=== PATIENT | male | born 1990 | race Caucasian/White ===

== ENCOUNTER 2019-05-13 21:59 | Emergency (ER) | payer OTHER, MEDICAID, SELFPAY ==
[2019-05-13 22:01] VITALS: BP 152/72; PULSE 78; RESP 16; TEMP 36.3; O2SAT 96; BMI 34.4
--- NOTE | 2019-05-13 22:40 | RAD_ITS ---
HISTORY: CHICKEN BONE STUCK IN THROAT EXAMINATION/TECHNIQUE: XR Neck Soft Tissue: 2 views COMPARISON: None FINDINGS: SOFT TISSUES: Unremarkable. No radiopaque foreign body. EPIGLOTTIS: No pathologic thickening or enlargement. PROXIMAL AIRWAY: Grossly patent. RAD/Neck for Soft Tissue IMPRESSION: Negative. at 2311 Reported and signed by: Bryn Flowers MD Electronically Signed: Bryn Flowers MD at 23:10 EDT Tel , Service support ,
--- NOTE | 2019-05-13 22:59 | ED.VISSUMM ---
- ER Visit Summary Date of Service: 05/13/19 Chief Complaint: Foreign body sensation History of Present Illness: The patient is a 28 M who presents with a foreign body sensation in his throat that began today. Patient states he was eating a chicken sandwich for lunch today. Patient states it felt like there was a small bone that he swallowed. Patient states it feels like there is still something in his throat when he swallows. Patient states the pain is sharp. Patient denies any difficulty breathing. Patient states he is able to swallow liquids without difficulty. Physical Examination: Vital signs are stable. Patient is afebrile. Patient is in no acute distress. Oral mucosa is pink and moist. Oropharynx is clear. There is no erythema. I do not see any foreign bodies in the visualized oropharynx. Neck is supple. Trachea is midline. There is no JVD noted. There is no subcutaneous emphysema. Heart was regular rate and rhythm. Lungs are clear and equal bilaterally. Test Results: Soft tissue neck x-ray was obtained. I do not see any foreign bodies on my interpretation. The radiologist interpretation was negative as well. Emergency Department Course and Treatment: Patient was given a GI cocktail here. Patient states that did alleviate his symptoms. Patient was advised that since there is no bone visualized on radiographs and his pain improved with topical lidocaine this is most likely an abrasion in his pharynx from the bone. I do not see a need for emergent endoscopy at this time. Patient has no airway compromise. Patient is swallowing liquids without difficulty. Patient was instructed to follow-up with his primary care physician in 5-7 days. Patient understood and was agreeable with the plan. All questions were answered. Disposition: Discharge home Impression: Pharyngeal abrasion This note was generated with [employer] dictation software. It may contain incorrect words, spelling, and punctuation that were not noted in review of the chart prior to signing ED Disposition - Plan for ED Patient: Disposition: Home or Assisted Living Diagnosis: Abrasion of pharynx Instructions: Pharyngeal Abrasion Referrals: NOT,DEFINED [NON-STAFF] - Evan Cheatham MD [STAFF PHYSICIAN] - 5-7 Days
[2019-05-13] MEDS: Mag Hydrox/Al Hydrox/Simeth 30 ML UDC PO (23:30)
[2019-05-14 00:24] VITALS: BP 148/67; PULSE 72; RESP 16; O2SAT 97
== END 2019-05-14 00:23 | disposition home or self-care (01) ==
PROVIDERS: Emergency Provider Emergency Medicine
DX: S10.11XA Abrasion of throat, initial encounter (principal); X58.XXXA Exposure to other specified factors, initial encounter; Y93.9 Activity, unspecified; Y92.9 Unspecified place or not applicable
CPT/HCPCS: 70360; 99283